=== PATIENT | male | born 1990 | race Hispanic/Latino ===

== ENCOUNTER 2020-08-13 11:18 | Emergency (ER) | payer SELFPAY ==
--- NOTE | 2020-08-13 11:47 | EDPHYS ---
Physician Documentation [facility] Name: Rex Hicks Age: 29 yrs Sex: Male : 1990 Arrival Date: 08/13/2020 Time: 11:19 Bed 13 Private MD: ED Physician Natalia No HPI: 08/13 11:42 This 29 yrs old Male presents to ER via EMS with complaints of Eye Injury. ma2 11:42 The patient sustained was at work working on wire, and a wire stuck his left eye.. he ma2 has mild left eye pain, no other symptoms... Onset: The symptoms/episode began/occurred suddenly, 1 hour(s) ago. Associated signs and symptoms: Pertinent negatives: chills, headache, runny nose. Severity of symptoms: At their worst the symptoms were mild in the emergency department the symptoms are unchanged. Historical: - Allergies: 11:24 No Known Allergies; ss - Home Meds: 11:24 None [Active]; ss - PMHx: 11:24 None; ss - PSHx: 11:24 None; ss - Immunization history:: Adult Immunizations up to date. - Social history:: Smoking status: Patient reports the use of cigarette tobacco products, smokes one-half pack cigarettes per day, Patient/guardian denies using alcohol, street drugs, The patient lives with family. - Family history:: not pertinent. ROS: 11:42 Constitutional: Negative for fever, chills, and weight loss. ma2 11:42 All other systems are negative. Exam: 11:42 Visual Acuity: Visual acuity is within normal limits. ma2 11:42 Constitutional: This is a well developed, well nourished patient who is awake, alert, and in no acute distress. Head/Face: Normocephalic, atraumatic. ENT: Nares patent. No nasal discharge, no septal abnormalities noted. Tympanic membranes are normal and external auditory canals are clear. Oropharynx with no redness, swelling, or masses, exudates, or evidence of obstruction, uvula midline. Mucous membranes moist. Neck: Trachea midline, no thyromegaly or masses palpated, and no cervical lymphadenopathy. Supple, full range of motion without nuchal rigidity, or vertebral point tenderness. No Meningismus. 11:42 Eyes: Periorbital structures: appear normal, Pupils: equal, round, and reactive to light and accomodation, Extraocular movements: intact throughout, Conjunctiva: Corneas: abrasion, Sclera: no appreciated abnormality, abrasion, of the medial aspect of conjunctiva of left eye, Anterior chamber: normal, Lids and lashes: appear normal, funduscopic exam reveals no obvious abnormalities, Visual bright: are intact, Examination of the other eye reveals no obvious gross abnormality, no siedle sign . Vital Signs: 11:20 Resp 15; Weight 103.42 kg; Height 5 ft. 11 in. (180.34 cm); Pain 5/10; ss 11:25 BP 124 / 78; Pulse 83; Resp 16; Pulse Ox 98% on R/A; Weight 99.79 kg; Height 5 ft. 11 vg1 in. (180.34 cm); Pain 5/10; 11:25 Body Mass Index 30.68 (99.79 kg, 180.34 cm) vg1 MDM: 11:20 Patient medically screened. ma2 11:42 Differential diagnosis: Corneal abrasion of Acute iritis of Ultraviolet keratitis in. ma2 Data reviewed: vital signs, nurses notes. Counseling: I had a detailed discussion with the patient and/or guardian regarding: the historical points, exam findings, and any diagnostic results supporting the discharge/admit diagnosis, the presence of at least one elevated blood pressure reading (>120/80) during this emergency department visit, the need for outpatient follow up. Response to treatment: the patient's symptoms have markedly improved after treatment. Administered Medications: No medications were administered Disposition: 08/13/20 11:46 Discharged to Home. Impression: Injury of conjunctiva and corneal abrasion without foreign body, left eye. - Condition is Stable. - Discharge Instructions: Corneal Abrasion, [id number]. - Prescriptions for Gentamicin 0.3 % Ophthalmic Drops - instill 1 drop by OPHTHALMIC route every 4 hours for 7 days; 1 bottle. Diclofenac Sodium 75 mg Oral Tablet Sustained Release - take 1 tablet by ORAL route 2 times per day; 30 tablet. - Medication Reconciliation Form, Thank You Letter, Antibiotic Education, Prescription Opioid Use form. - Follow up: Felice Mohamud MD; When: Tomorrow; Reason: Continuance of care. Signatures: Norma Abraham RN RN Natalia Olivera MD MD ma2 Susi Swartz RN RN vg1 Corrections: (The following items were deleted from the chart) 12:03 11:46 08/13/2020 11:46 Discharged to Home. Impression: Injury of conjunctiva and vg1 corneal abrasion without foreign body, left eye. Condition is Stable. Forms are Medication Reconciliation Form, Thank You Letter, Antibiotic Education, Prescription Opioid Use. Follow up: Feliec Mohamud; When: Tomorrow; Reason: Continuance of care. ma2
--- NOTE | 2020-08-13 11:47 | ER ---
Nurse's Notes [facility] Name: Rex Hicks Age: 29 yrs Sex: Male : 1990 Arrival Date: 08/13/2020 Time: 11:19 Bed 13 Private MD: Diagnosis: Injury of conjunctiva and corneal abrasion without foreign body, left eye Presentation: 08/13 11:20 Chief complaint: EMS states: "He was wrapping insulation around a pipe and the metal ss wire came around the pipe and poked his eyes, Once on each side under his safety glasses." bandages placed on bilateral eyes prior to arrival. Unknown whether or not eye lids were injured or the eye itself.". Coronavirus screen: Client denies travel out of the [place] in the last 14 days. Ebola Screen: Patient denies exposure to infectious person. Patient denies travel to an Ebola-affected area in the 21 days before illness onset. Mechanism of Injury: SEE TRIAGE NOTE. Initial Sepsis Screen: Does the patient meet any 2 criteria? No. Patient's initial sepsis screen is negative. Does the patient have a suspected source of infection? No. Patient's initial sepsis screen is negative. Risk Assessment: Do you want to hurt yourself or someone else? Patient reports no desire to harm self or others. Onset of symptoms was August 13, 2020. 11:20 Method Of Arrival: EMS: [facility] 11:20 Acuity: OPAL 2 ss Historical: - Allergies: 11:24 No Known Allergies; ss - Home Meds: 11:24 None [Active]; ss - PMHx: 11:24 None; ss - PSHx: 11:24 None; ss - Immunization history:: Adult Immunizations up to date. - Social history:: Smoking status: Patient reports the use of cigarette tobacco products, smokes one-half pack cigarettes per day, Patient/guardian denies using alcohol, street drugs, The patient lives with family. - Family history:: not pertinent. Screenin:24 Abuse screen: Denies threats or abuse. Nutritional screening: No deficits noted. vg1 Tuberculosis screening: No symptoms or risk factors identified. Fall Risk No fall in past 12 months (0 pts). No secondary diagnosis (0 pts). No IV (0 pts). Ambulatory Aid- None/Bed Rest/Nurse Assist (0 pts). Gait- Normal/Bed Rest/Wheelchair (0 pts) Mental Status- Oriented to own ability (0 pts). Total Hernandez Fall Scale indicates No Risk (0-24 pts). Assessment: 11:21 General: Appears in no apparent distress. comfortable, Behavior is calm, cooperative. vg1 Pain: Complains of pain in left eye Pain currently is 5 out of 10 on a pain scale. Pain began 30 min ago. Neuro: Level of Consciousness is awake, alert, obeys commands, Oriented to person, place, time, situation. Cardiovascular: Patient's skin is warm and dry. Respiratory: Airway is patent Respiratory effort is even, unlabored. GI: No signs and/or symptoms were reported involving the gastrointestinal system. : No signs and/or symptoms were reported regarding the genitourinary system. EENT: Eyes Pt stated, poked Left eye with a wire; eye began to water then noticed blood. Pt is unable to open Left eye, dry blood noticed around Left eye. Sclera/Cornea are reddened in outer aspect of conjuctiva of left eye, iris of left eye and inner aspect of conjunctiva of left eye. Derm: Skin is intact, is healthy with good turgor. Musculoskeletal: Circulation, motion, and sensation intact. Vital Signs: 11:20 Resp 15; Weight 103.42 kg; Height 5 ft. 11 in. (180.34 cm); Pain 5/10; ss 11:25 BP 124 / 78; Pulse 83; Resp 16; Pulse Ox 98% on R/A; Weight 99.79 kg; Height 5 ft. 11 vg1 in. (180.34 cm); Pain 5/10; 11:25 Body Mass Index 30.68 (99.79 kg, 180.34 cm) vg1 ED Course: 11:19 Patient arrived in ED. ss 11:20 Natalia No MD is Attending Physician. ma2 11:21 Susi Swartz, RN is Primary Nurse. vg1 11:24 Triage completed. ss 11:24 Arm band placed on right wrist. ss 11:24 Patient has correct armband on for positive identification. Bed in low position. Call vg1 light in reach. Side rails up X2. Adult w/ patient. 11:46 Felice Mohamud MD is Referral Physician. ma2 12:02 No provider procedures requiring assistance completed. Patient did not have IV access vg1 during this emergency room visit. Administered Medications: No medications were administered Outcome: 11:46 Discharge ordered by . ma2 12:02 Discharged to home ambulatory, with coworker vg1 12:02 Condition: stable 12:02 Discharge instructions given to patient, Instructed on discharge instructions, follow up and referral plans. medication usage, Demonstrated understanding of instructions, follow-up care, medications, Prescriptions given X 2. 12:03 Patient left the ED. vg1 Signatures: Norma Abraham, RN RN Natalia No MD MD ma2 Susi Swartz RN RN vg1
[2020-08-13] MEDS ORDERED: TETRACAINE HCL 0.5% 4ML OPTH ONE (11:53)
[2020-08-13] MEDS ORDERED: FLUORESCEIN SODIUM 1 MG/WRAP ONE (11:53)
[2020-08-13 12:08] VITALS: BP 124/78; O2SAT 98
== END 2020-08-13 12:03 | disposition home or self-care (01) ==
LOC: ER 11:18
DX: S05.02XA Injury of conjunctiva and corneal abrasion without foreign body, left eye, initial encounter (principal); F17.210 Nicotine dependence, cigarettes, uncomplicated; W22.8XXA Striking against or struck by other objects, initial encounter
CPT/HCPCS: 99283